=== PATIENT | male | born 1965 | race Caucasian/White ===

== ENCOUNTER → 2018-12-26 | Outpatient (CLI) | payer OTHER | LOC: M.RAD 15:10 | DX: M19.011 Primary osteoarthritis, right shoulder (principal); M19.012 Primary osteoarthritis, left shoulder; M25.552 Pain in left hip; M25.551 Pain in right hip; M25.711 Osteophyte, right shoulder; M25.712 Osteophyte, left shoulder; M21.821 Other specified acquired deformities of right upper arm ==

== ENCOUNTER → 2019-01-12 | Outpatient (CLI) | payer OTHER ==
[~2019-01-12] VITALS: Ht 177.8 cm; Wt 102.1 kg
[2019-01-12] VITALS (7 sets, daily range): BP systolic 106–122; BP diastolic 68–77
[~2019-01-12] MED LIST: LOPRESSOR50 PO; OMEPRAZOLE40 MG PO; PREDNISONE 10 M10 MG PO
[2019-01-12 12:50] LABS: HEMATOCRIT 39.8 % (42.0-52.0); HEMOGLOBIN 12.6 gm/dL (14.0-18.0); MCH 23.5 pg (26.0-34.0); MCHC 31.6 g/dL (28.0-37.0); MCV 74.2 fL (80.0-100.0); MPV 7.4 fl. (7.2-11.1); RBC 5.37 mil/uL (4.50-6.00); RDW-CV 18.6 % (10.5-14.5); WBC 6.5 thou/uL (4.0-11.0)
[2019-01-12 12:57] LABS: PROTIME 9.9 Seconds (9.20-11.50)
[2019-01-12 13:00] LABS: ANION GAP 13 mmol/L (7-16); BUN 16 mg/dL (7-18); CALCIUM 8.9 mg/dL (8.5-10.1); CHLORIDE 105 mmol/L (98-107); CO2 23 mmol/L (21-32); GLUCOSE 91 mg/dL (70-99); SODIUM 141 mmol/L (136-145)
[2019-01-12 13:05] LABS: ALBUMIN 3.7 g/dL (3.4-5.0); ALKALINE PHOSPHATASE 39 U/L (46-116); CHOLESTEROL 157 mg/dL (<200); HDL CHOLESTEROL 44 mg/dL (>40); LDL CHOLESTEROL 101 mg/dL (<100); SERUM ASSESSMENT Clear; SGOT 18 U/L (15-37); SGPT 22 U/L (30-65); TC:HDL 3.6 Ratio (Not establshd); TOTAL BILIRUBIN 0.9 mg/dL (<0.1-1.0); TRIGLYCERIDE 62 mg/dL (<150); VLDL 12 mg/dL (<40)
--- NOTE | 2019-01-12 14:38 | EKG ---
[place] [address] ELECTROCARDIOGRAM REPORT Name: BRETT GONSALVES Room: [facility]#: [id number] Admission: 01/12/19 Attend Phys: Tian Shah MD Discharge: Date of : 63 Report #: [id number] THIS REPORT FOR: //name// [facility] Test Date: 2019-01-12 Test Time: 12:10:43 Pat Name: BRETT GONSALVES Department: Room: Gender: M Local Superintendent: [facility] : 1965 Requested By: Tian Shah Order Number: [id number] Reading MD: Milan Biggs Measurements Intervals [place] Rate: 59 P: 0 AL: 214 QRS: -13 QRSD: 97 T: 11 QT: 406 QTc: 403 Interpretive Statements Sinus rhythm Prolonged AL interval Abnormal R-wave progression, early transition ST elevation suggests acute pericarditis No previous ECG available for comparison Electronically Signed On 01-12-2019 14:38:19 CDT by Milan Biggs [email or web address] <ELECTRONICALLY SIGNED> By: Milan Biggs MD, [facility] 01/12/19 1438 1210 1210 Milan Biggs MD, FACC /EPI
--- NOTE | 2019-01-12 17:13 | CARD ---
[address] [address] CARDIAC CATH REPORT Name: BRETT GONSALVES Room: [facility]#: [id number] Admission: 01/12/19 Attend Phys: Tian Shah MD Discharge: Date of : 63 Report #: [id number] THIS REPORT FOR: //name// APPROVED REPORT Study performed: 01/12/2019 13:18:14 Patient Details Patient Status: Out-Patient Room #: The patient is a 54 year-old male Event Personnel Tian Shah Milk Route Supervisor, Dianne Hernandez RN Pigment Weigher, Vikas Hernandez (R) Monitor, Fabián Golden CHANNEL SALES MANAGER Scrub Procedures Performed Art Access - R femoral artery* Left Heart Cath w/or w/o Coronaries [id number] [facility] Hemostasis w/ Mynx Procedure Narrative The patient was brought electively to the Cardiac Catheterization Laboratory and was prepped and draped in a sterile manner. The right wrist was infiltrated with 1% Lidocaine subcutaneous anesthesia. A 6Fr sheath was inserted into the . Coronary angiography was performed using coronary diagnostic catheters. The right coronary system was accessed and visualized with a 6Fr JR4 catheter. The left coronary system was accessed and visualized with a 6Fr JL4 catheter. The left ventricle was accessed and visualized with a Pigtail catheter. The patient tolerated the procedure well and there were no complications associated with the procedure. A hematoma occurred. Intraoperative Conscious Sedation Fentanyl 50 mcg Versed 2 mg Dose: 661 mGy Contrast Type and Amount: Omnipaque 120 ml Diagnostic Cath Left Main Normal. Bifurcates into the LAD and circumflex. LAD Normal in the proximal mid and distal portion. Diagonal 1 Normal. Diagonal 2 Normal. Diagonal 3 Normal. Circumflex Normal in the proximal [place] [address] CARDIAC CATH REPORT Name: BRETT GONSALVES Kalpana Room: [facility]#: [id number] Admission: 01/12/19 Attend Phys: Tian Shah MD Discharge: Date of : 63 Report #: [id number] OM1 Normal large branched. Right Coronary Normal in the proximal mid and distal portion. R PDA Normal. RPLV Normal. Left Ventriculography The left ventricle is normal in size with normal contractility. The left ventricular ejection fraction is estimated to be 60-65%. Hemodynamics The aortic pressure is 135/80 mmHg with a mean of 86 mmHg. The left ventricular pressure is 131/16 mmHg with a mean of mmHg. The left ventricular end diastolic pressure is 20 mmHg. Conclusion 1. Normal coronary arteries. 2. Mildly elevated left end diastolic pressure. 3. Normal left ventricular systolic function. Recommendations 1. Continue medical management and risk factor modification. <ELECTRONICALLY SIGNED> By: Tian Shah MD, [facility] 06/1711 11 11[facility] Shah MD, FACC /INF
== END | disposition home or self-care (01) ==
LOC: M.CL 11:35
PROVIDERS: Internal Medicine Cardiovascular Disease
DX: I11.0 Hypertensive heart disease with heart failure (principal); I50.30 Unspecified diastolic (congestive) heart failure; R07.9 Chest pain, unspecified; K21.9 Gastro-esophageal reflux disease without esophagitis; F17.210 Nicotine dependence, cigarettes, uncomplicated; Z98.890 Other specified postprocedural states; Z98.84 Bariatric surgery status; Z79.899 Other long term (current) drug therapy